=== PATIENT | female | born 1985 | race Caucasian/White ===

== ENCOUNTER 2017-02-07 12:11 | Inpatient (IN) | payer MEDICAID ==
[~2017-02-07] VITALS: Ht 167.6 cm; Wt 36.6 kg
[~2017-02-07 12:11] MED LIST: LORA1TAB PO; SUMA50TA4 PO
[2017-02-07 12:55] LABS: ASPARTATE AMINO TRANSFERASE 648 U/L (15-37); BLOOD UREA NITROGEN 4 mg/dL (7-18)
[2017-02-07] MEDS ORDERED: SODIUM CHLORIDE FLUSH 10ML SYR IVF ONE (13:00)
[2017-02-07] MEDS ORDERED: SODIUM CHLORIDE 0.9% 1,000ML IVBOLUS ONE (13:00)
[2017-02-07] MEDS ORDERED: NS + 40MEQ KCL 1,000 ML IV ONE (13:04)
[2017-02-07] MEDS ORDERED: POTASSIUM CHLORIDE 20 MEQ TAB.ER.PRT PO ONE (13:30)
[2017-02-07] MEDS ORDERED: LABETALOL 5MG/ML 40ML VIAL IVPush PRN (14:00)
[2017-02-07] MEDS ORDERED: SODIUM CHLORIDE FLUSH 10ML SYR IVF PRN (14:00)
[2017-02-07] MEDS ORDERED: POTASSIUM CHLORIDE 40 MEQ in SODIUM CHLORIDE 0.9% 500 ML IV ONE (14:30)
[2017-02-07] MEDS ORDERED: OMNIPAQUE 350 MG/ML, 100ML BOTTLE ONE (14:37)
[2017-02-07] MEDS ORDERED: MORPHINE SULFATE 4 MG/ML, 1ML ONE ×3 (15:28→20:00)
[2017-02-07] MEDS ORDERED: ONDANSETRON 2MG/ML, 2ML ONE (15:29)
[2017-02-07] MEDS: morphine SULFATE 10 MG/ML, 1ML IVPush PRN ×2 (15:42→20:03)
[2017-02-07] MEDS: ONDANSETRON 2MG/ML, 2ML IVPush PRN (16:44)
[2017-02-07] MEDS: POTASSIUM CHLORIDE 20 MEQ in LACTATED RINGERS 1,000 ML IV SCH ×3 (17:52→22:21)
[2017-02-07 20:00] VITALS: BP 131/88
[2017-02-07] MEDS: LORazepam 2 MG/ML, 1ML IVPush PRN (22:43)
[2017-02-08] MEDS: LORazepam 2 MG/ML, 1ML IVPush PRN ×6 (00:59→23:39)
[2017-02-08] MEDS: POTASSIUM CHLORIDE 20 MEQ in LACTATED RINGERS 1,000 ML IV SCH ×4 (01:58→23:36)
[2017-02-08 02:00] VITALS: BP 148/100
[2017-02-08] MEDS: POTASSIUM CHLORIDE 20 MEQ, MAGNESIUM SULFATE 1 GM, THIAMINE 100 MG, FOLIC ACID 1 MG, MV... IV SCH (02:51)
[2017-02-08 04:00] VITALS: BP 145/95
[2017-02-08 05:54] LABS: BLOOD UREA NITROGEN 4 mg/dL (7-18)
[2017-02-08 05:58] LABS: ASPARTATE AMINO TRANSFERASE 428 U/L (15-37)
[2017-02-08 07:51] VITALS: BP 132/89
[2017-02-08] MEDS: morphine SULFATE 10 MG/ML, 1ML IVPush PRN ×2 (08:17→20:31)
[2017-02-08] MEDS: ONDANSETRON 2MG/ML, 2ML IVPush PRN ×2 (09:31→20:44)
[2017-02-08 12:00] VITALS: BP 143/97
[2017-02-08 16:30] VITALS: BP 138/86
[2017-02-08 20:59] VITALS: BP 128/85
[2017-02-09 01:02] VITALS: BP 139/97
[2017-02-09] MEDS: LORazepam 2 MG/ML, 1ML IVPush PRN ×6 (01:39→22:20)
[2017-02-09] MEDS: morphine SULFATE 10 MG/ML, 1ML IVPush PRN ×4 (02:30→23:01)
[2017-02-09] MEDS: ONDANSETRON 2MG/ML, 2ML IVPush PRN ×2 (02:30→09:00)
[2017-02-09 04:07] VITALS: BP 135/95
[2017-02-09] MEDS: POTASSIUM CHLORIDE 20 MEQ, MAGNESIUM SULFATE 1 GM, THIAMINE 100 MG, FOLIC ACID 1 MG, MV... IV SCH (04:13)
[2017-02-09 06:11] LABS: ASPARTATE AMINO TRANSFERASE 648 U/L (15-37); BLOOD UREA NITROGEN 3 mg/dL (7-18)
[2017-02-09 07:41] VITALS: BP 129/96
[2017-02-09] MEDS ORDERED: POTASSIUM CHLORIDE 20 MEQ, MAGNESIUM SULFATE 1 GM, FOLIC ACID 1 MG, THIAMINE 100 MG, MV... IV SCH (09:30)
[2017-02-09] MEDS: D5%-0.45NACL+KCL 30MEQ 1,000 ML IV SCH ×2 (10:14→17:19)
[2017-02-09 12:02] VITALS: BP 141/102
[2017-02-09] MEDS ORDERED: CEFTRIAXONE PMX 1GM/50ML 50 ML IV SCH (14:00)
[2017-02-09] MEDS ORDERED: POTASSIUM PHOSPHATE 22 MEQ in SODIUM CHLORIDE 0.9% 500 ML IV ONE (14:00)
[2017-02-09] MEDS ORDERED: MAGNESIUM SULFATE PMX 4GM/100M 100 ML IV ONE (14:00)
[2017-02-09 19:39] VITALS: BP 126/86
[2017-02-09] MEDS: metroNIDAZOLE 500 MG TABLET PO SCH (20:00)
[2017-02-10 01:33] VITALS: BP 118/85
[2017-02-10] MEDS: LORazepam 2 MG/ML, 1ML IVPush PRN ×2 (01:55→05:01)
[2017-02-10 05:13] VITALS: BP 130/95
[2017-02-10] MEDS: ONDANSETRON 2MG/ML, 2ML IVPush PRN (05:51)
[2017-02-10 06:13] LABS: ASPARTATE AMINO TRANSFERASE 563 U/L (15-37); BLOOD UREA NITROGEN < 1 mg/dL (7-18)
[2017-02-10 07:54] VITALS: BP 123/85
[2017-02-10] MEDS: morphine SULFATE 10 MG/ML, 1ML IVPush PRN (08:36)
[2017-02-10] MEDS: metroNIDAZOLE 500 MG TABLET PO SCH (08:36)
[2017-02-10] MEDS: D5%-0.45NACL+KCL 30MEQ 1,000 ML IV SCH (08:37)
[2017-02-10] MEDS ORDERED: POTASSIUM CHLORIDE 20 MEQ TAB.ER.PRT PO ONE (09:00)
[2017-02-10] MEDS ORDERED: LORazepam 1MG TABLET PO PRN (09:30)
[2017-02-10] MEDS ORDERED: FOLIC ACID 1 MG TABLET PO SCH (09:30)
[2017-02-10] MEDS ORDERED: THIAMINE 100MG TABLET PO SCH (09:30)
[2017-02-10] MEDS ORDERED: MULTIVIT.W/IRON, MINERALS ORAL SOL PO SCH (09:30)
[2017-02-10 11:10] LABS: HEPATITIS C VIRUS ANTIBODY Nonreactive (Nonreactive)
== END 2017-02-10 13:16 | disposition left against medical advice (07) | DRG 439 ==
LOC: ED 13:38 → EDIP 13:39 → ED 13:55 → 4EST 15:50
PROVIDERS: ADMIT Internal Medicine; ATTEND Internal Medicine
DX: K85.20 Alcohol induced acute pancreatitis without necrosis or infection (principal); F10.239 Alcohol dependence with withdrawal, unspecified; N39.0 Urinary tract infection, site not specified; A09 Infectious gastroenteritis and colitis, unspecified; E87.6 Hypokalemia; D69.6 Thrombocytopenia, unspecified; R73.9 Hyperglycemia, unspecified; E86.0 Dehydration; Z53.21 Procedure and treatment not carried out due to patient leaving prior to being seen by health care provider; F10.220 Alcohol dependence with intoxication, uncomplicated; E16.2 Hypoglycemia, unspecified; D64.9 Anemia, unspecified; A59.9 Trichomoniasis, unspecified; Z79.899 Other long term (current) drug therapy; Z88.6 Allergy status to analgesic agent; Z87.891 Personal history of nicotine dependence
CPT/HCPCS: 36415; 74160; 80053; 80061; 80074; 81001; 83036; 83690; 83735; 84100; 84132; 84443; 85025; 87086; 96360; 96361; J0696; J2405; J3411; J3475; J3480; Q9967; J2060; J2270; J7030; J7040; J7120

== ENCOUNTER 2017-03-26 20:51 | Inpatient (IN) | payer MEDICAID ==
[~2017-03-26] VITALS: Ht 167.6 cm; Wt 50.2 kg
[2017-03-26] MEDS ORDERED: MORPHINE SULFATE 4 MG/ML, 1ML ONE ×2 (21:25→23:53)
[2017-03-26] MEDS ORDERED: ONDANSETRON 2MG/ML, 2ML ONE (21:25)
[2017-03-26] MEDS: MORPHINE SULFATE 4 MG/ML, 1ML IVPush PRN ×2 (21:30→23:56)
[2017-03-26] MEDS ORDERED: ONDANSETRON 2MG/ML, 2ML IVPush ONE (21:30)
[2017-03-26 21:53] LABS: HEMATOCRIT 31.2 % (34.6-47.8); HEMOGLOBIN 10.4 g/dL (11.7-16.4); WHITE BLOOD COUNT 6.4 x10^3/uL (3.4-10)
[2017-03-26 22:07] LABS: BLOOD UREA NITROGEN 4 mg/dL (7-18)
[2017-03-26 22:14] LABS: ASPARTATE AMINO TRANSFERASE 167 U/L (15-37)
[2017-03-26] MEDS ORDERED: POTASSIUM CHLORIDE 20 MEQ TAB.ER.PRT ONE (22:22)
[2017-03-26] MEDS ORDERED: POTASSIUM CHLORIDE 20 MEQ TAB.ER.PRT PO ONE (22:30)
[2017-03-27] MEDS ORDERED: FAMOTIDINE 20 MG/2 ML IVP ONE (01:00)
[2017-03-27] MEDS ORDERED: LORazepam 2 MG/ML, 1ML IVPush ONE (01:00)
[2017-03-27] MEDS ORDERED: SODIUM CHLORIDE 0.9% 1,000ML IVBOLUS ONE ×2 (01:00→08:00)
[2017-03-27] MEDS ORDERED: ONDANSETRON 2MG/ML, 2ML IVPush ONE (01:00)
[2017-03-27] MEDS ORDERED: ONDANSETRON 2MG/ML, 2ML ONE (01:02)
[2017-03-27] MEDS ORDERED: FAMOTIDINE 20 MG/2 ML ONE (01:03)
[2017-03-27] MEDS ORDERED: LORazepam 2 MG/ML, 1ML ONE (01:03)
[2017-03-27] MEDS ORDERED: SODIUM CHLORIDE 0.9% 1,000 ML IV ONE (01:12)
[2017-03-27] MEDS ORDERED: PIPERACILLIN/TAZO/PMX 3.375GM 50 ML ONE (01:16)
[2017-03-27] MEDS ORDERED: MORPHINE SULFATE 4 MG/ML, 1ML IVPush PRN ×2 (01:30→03:00)
[2017-03-27] MEDS ORDERED: ONDANSETRON 2MG/ML, 2ML IVPush PRN (01:30)
[2017-03-27] MEDS ORDERED: PIPERACILLIN/TAZO/PMX 3.375GM 50 ML IVPB ONE (01:30)
[2017-03-27] MEDS ORDERED: GUAIFENESIN/DM 200-20MG, 10ML UDC PO PRN (02:00)
[2017-03-27] MEDS ORDERED: POTASSIUM CHLORIDE 20 MEQ TAB.ER.PRT PO ONE (02:00)
[2017-03-27] MEDS ORDERED: POLYETHYLENE GLYCOL 17 GM PACKET PO PRN (02:00)
[2017-03-27] MEDS ORDERED: LABETALOL 5MG/ML, 20ML IVPush PRN (02:00)
[2017-03-27] MEDS ORDERED: LORazepam 2 MG/ML, 1ML IV PRN ×3 (02:00)
[2017-03-27] MEDS ORDERED: LORazepam 1MG TABLET PO PRN ×3 (02:00)
[2017-03-27 02:31] LABS: HEMATOCRIT 30.6 % (34.6-47.8); HEMOGLOBIN 10.1 g/dL (11.7-16.4); WHITE BLOOD COUNT 5.9 x10^3/uL (3.4-10)
[2017-03-27 02:43] LABS: BLOOD UREA NITROGEN 4 mg/dL (7-18)
[2017-03-27 02:48] VITALS: BP 104/78
[2017-03-27] MEDS: POTASSIUM CHLORIDE 20 MEQ, MAGNESIUM SULFATE 2 GM, THIAMINE 100 MG, MVI ADULT 10 ML, FO... IV SCH (04:09)
[2017-03-27] MEDS: LORazepam 2 MG/ML, 1ML IV PRN (04:27)
[2017-03-27] MEDS ORDERED: MAGNESIUM SULFATE PMX 4GM/100M 100 ML IV ONE (05:30)
[2017-03-27 06:42] LABS: DAU SCREEN DISCLAIMER
[2017-03-27 07:57] VITALS: BP 110/77
[2017-03-27] MEDS: SENNA/DOCUSATE TABLET PO SCH (07:57)
[2017-03-27] MEDS: PANTOPRAZOLE 40 MG IV IVPush SCH (08:42)
[2017-03-27] MEDS: LORazepam 1MG TABLET PO PRN ×2 (08:43→12:44)
[2017-03-27] MEDS: NICOTINE 21 MG/24 HR PATCH.TD24 TD SCH (08:43)
[2017-03-27] MEDS: POTASSIUM CHLORIDE 20 MEQ TAB.ER.PRT PO SCH ×2 (08:43→16:47)
[2017-03-27] MEDS ORDERED: ERGOCALCIFEROL 50,000 UNIT CAPSULE PO SCH (10:00)
[2017-03-27 10:55] LABS: BLOOD UREA NITROGEN 5 mg/dL (7-18)
[2017-03-27] MEDS: MORPHINE SULFATE 4 MG/ML, 1ML IVPush PRN ×2 (11:19→19:36)
[2017-03-27] MEDS: ONDANSETRON 2MG/ML, 2ML IVPush PRN (11:20)
[2017-03-27 12:30] VITALS: BP 108/76
[2017-03-27] MEDS: OXYcodone IR 5MG TABLET PO PRN ×2 (14:19→23:04)
[2017-03-27] MEDS: LORazepam 0.5MG TABLET PO PRN (16:47)
[2017-03-27 18:46] VITALS: BP 118/84
[2017-03-27] MEDS: ONDANSETRON ODT 4 MG PO PRN (19:36)
[2017-03-27] MEDS: SODIUM CHLORIDE 0.9% 1,000 ML IV SCH (19:37)
[2017-03-28] MEDS: SODIUM CHLORIDE 0.9% 1,000 ML IV SCH ×2 (00:40→14:19)
[2017-03-28 00:55] VITALS: BP 134/97
[2017-03-28] MEDS: POTASSIUM CHLORIDE 20 MEQ, MAGNESIUM SULFATE 2 GM, THIAMINE 100 MG, MVI ADULT 10 ML, FO... IV SCH (03:19)
[2017-03-28] MEDS: MORPHINE SULFATE 4 MG/ML, 1ML IVPush PRN ×3 (03:37→22:29)
[2017-03-28] MEDS: ONDANSETRON ODT 4 MG PO PRN (03:37)
[2017-03-28] MEDS: OXYcodone IR 5MG TABLET PO PRN (06:12)
[2017-03-28 06:36] VITALS: BP 115/84
[2017-03-28] MEDS: POTASSIUM CHLORIDE 20 MEQ TAB.ER.PRT PO SCH ×2 (08:00→17:00)
[2017-03-28] MEDS: SENNA/DOCUSATE TABLET PO SCH (09:00)
[2017-03-28] MEDS: NICOTINE 21 MG/24 HR PATCH.TD24 TD SCH (10:14)
[2017-03-28] MEDS: PANTOPRAZOLE 40 MG IV IVPush SCH (10:21)
[2017-03-28 10:28] LABS: BLOOD UREA NITROGEN 3 mg/dL (7-18)
[2017-03-28 10:31] LABS: ASPARTATE AMINO TRANSFERASE 160 U/L (15-37); FERRITIN 1122.3 ng/mL (8-252); TOTAL IRON BINDING CAPACITY 117 mcg/dL (250-450)
[2017-03-28 10:37] LABS: HEMOGLOBIN 8.8 g/dL (11.7-16.4); WHITE BLOOD COUNT 4.8 x10^3/uL (3.4-10)
[2017-03-28 10:52] LABS: ANISOCYTOSIS 1+
[2017-03-28 10:54] LABS: STOMATOCYTES 1+
[2017-03-28 10:56] LABS: LARGE PLATELETS 1+
[2017-03-28 14:10] VITALS: BP 128/89
[2017-03-28] MEDS ORDERED: MORPHINE SULFATE 4 MG/ML, 1ML ONE (14:14)
[2017-03-28] MEDS: ONDANSETRON 2MG/ML, 2ML IVPush PRN (16:57)
[2017-03-28] MEDS: CEFTRIAXONE PMX 1GM/50ML 50 ML IV SCH (19:33)
[2017-03-28] MEDS: METRONIDAZOLE PMX 500MG/100ML 100 ML IV SCH (20:31)
[2017-03-28 20:46] VITALS: BP 119/77
[2017-03-28] MEDS: LORazepam 2 MG/ML, 1ML IV PRN (22:30)
[2017-03-29 00:56] VITALS: BP 114/79
[2017-03-29] MEDS: POTASSIUM CHLORIDE 20 MEQ, MAGNESIUM SULFATE 2 GM, THIAMINE 100 MG, MVI ADULT 10 ML, FO... IV SCH (02:19)
[2017-03-29] MEDS: SODIUM CHLORIDE 0.9% 1,000 ML IV SCH ×2 (04:20→21:00)
[2017-03-29] MEDS: METRONIDAZOLE PMX 500MG/100ML 100 ML IV SCH ×3 (04:41→20:05)
[2017-03-29 05:19] LABS: HEMATOCRIT 29.1 % (34.6-47.8); HEMOGLOBIN 9.6 g/dL (11.7-16.4); WHITE BLOOD COUNT 5.7 x10^3/uL (3.4-10)
[2017-03-29 05:42] LABS: ASPARTATE AMINO TRANSFERASE 188 U/L (15-37); BLOOD UREA NITROGEN 2 mg/dL (7-18)
[2017-03-29 07:00] VITALS: BP 106/73
[2017-03-29] MEDS: POTASSIUM CHLORIDE 20 MEQ TAB.ER.PRT PO SCH ×2 (08:00→18:08)
[2017-03-29] MEDS: NICOTINE 21 MG/24 HR PATCH.TD24 TD SCH (08:12)
[2017-03-29] MEDS: PANTOPRAZOLE 40 MG IV IVPush SCH (08:12)
[2017-03-29] MEDS: SENNA/DOCUSATE TABLET PO SCH (08:13)
[2017-03-29] MEDS: OMEPRAZOLE 20 MG CAPSULE.DR PO SCH (09:00)
[2017-03-29] MEDS: LORazepam 2 MG/ML, 1ML IV PRN ×2 (10:33→15:02)
[2017-03-29] MEDS: OXYcodone IR 5MG TABLET PO PRN ×3 (12:32→22:02)
[2017-03-29] MEDS: ONDANSETRON 2MG/ML, 2ML IVPush PRN ×2 (13:14→19:29)
[2017-03-29 13:30] VITALS: BP 115/88
[2017-03-29] MEDS: CEFTRIAXONE PMX 1GM/50ML 50 ML IV SCH (19:29)
[2017-03-29 21:05] VITALS: BP 106/78
[2017-03-29] MEDS: LORazepam 1MG TABLET PO PRN (21:33)
[2017-03-30] MEDS: ONDANSETRON ODT 4 MG PO PRN ×3 (01:20→21:02)
[2017-03-30] MEDS: LORazepam 1MG TABLET PO PRN ×2 (01:20→05:20)
[2017-03-30] MEDS: OXYcodone IR 5MG TABLET PO PRN ×4 (02:30→21:02)
[2017-03-30] MEDS: METRONIDAZOLE PMX 500MG/100ML 100 ML IV SCH ×3 (04:15→20:58)
[2017-03-30 08:00] VITALS: BP 124/95
[2017-03-30 08:20] LABS: HEMATOCRIT 26.9 % (34.6-47.8); HEMOGLOBIN 8.9 g/dL (11.7-16.4)
[2017-03-30] MEDS: NICOTINE 21 MG/24 HR PATCH.TD24 TD SCH (09:00)
[2017-03-30] MEDS: OMEPRAZOLE 20 MG CAPSULE.DR PO SCH (09:00)
[2017-03-30] MEDS: PANTOPRAZOLE 40 MG IV IVPush SCH (09:00)
[2017-03-30] MEDS: SENNA/DOCUSATE TABLET PO SCH (09:00)
[2017-03-30 09:46] LABS: ASPARTATE AMINO TRANSFERASE 160 U/L (15-37); BLOOD UREA NITROGEN < 1 mg/dL (7-18)
[2017-03-30] MEDS: LORazepam 0.5MG TABLET PO PRN ×2 (10:43→15:55)
[2017-03-30 11:30] LABS: ANISOCYTOSIS 1+; POLYCHROMASIA 1+
[2017-03-30] MEDS: SODIUM CHLORIDE 0.9% 1,000 ML IV SCH (12:02)
[2017-03-30 12:29] LABS: BLOOD UREA NITROGEN < 1 mg/dL (7-18)
[2017-03-30 14:49] VITALS: BP 113/76
[2017-03-30 18:36] VITALS: BP 115/72
[2017-03-30] MEDS: CEFTRIAXONE PMX 1GM/50ML 50 ML IV SCH (20:05)
[2017-03-30] MEDS: LORazepam 2 MG/ML, 1ML IV PRN (22:51)
[2017-03-31 01:00] VITALS: BP 121/78
[2017-03-31] MEDS: OXYcodone IR 5MG TABLET PO PRN ×5 (03:02→20:29)
[2017-03-31] MEDS: LORazepam 2 MG/ML, 1ML IV PRN (03:02)
[2017-03-31] MEDS: SODIUM CHLORIDE 0.9% 1,000 ML IV SCH ×2 (04:09→19:14)
[2017-03-31] MEDS: METRONIDAZOLE PMX 500MG/100ML 100 ML IV SCH ×3 (04:09→23:19)
[2017-03-31 05:41] LABS: HEMATOCRIT 30.6 % (34.6-47.8); HEMOGLOBIN 10.1 g/dL (11.7-16.4); WHITE BLOOD COUNT 6.2 x10^3/uL (3.4-10)
[2017-03-31 05:46] LABS: BLOOD UREA NITROGEN 1 mg/dL (7-18)
[2017-03-31 07:13] VITALS: BP 123/87
[2017-03-31] MEDS: PANTOPRAZOLE 40 MG IV IVPush SCH (07:52)
[2017-03-31] MEDS: SENNA/DOCUSATE TABLET PO SCH (07:52)
[2017-03-31] MEDS: OMEPRAZOLE 20 MG CAPSULE.DR PO SCH (07:52)
[2017-03-31] MEDS: NICOTINE 21 MG/24 HR PATCH.TD24 TD SCH (07:52)
[2017-03-31] MEDS: ONDANSETRON 2MG/ML, 2ML IVPush PRN ×2 (08:46→16:17)
[2017-03-31] MEDS ORDERED: OMNIPAQUE 350 MG/ML, 100ML BOTTLE ONE (13:12)
[2017-03-31 14:14] VITALS: BP 120/88
[2017-03-31] MEDS ORDERED: LORazepam 0.5MG TABLET PO PRN (16:30)
[2017-03-31 19:16] VITALS: BP 108/82
[2017-03-31] MEDS: CEFTRIAXONE PMX 1GM/50ML 50 ML IV SCH (20:29)
[2017-03-31] MEDS: ONDANSETRON ODT 4 MG PO PRN (23:20)
[2017-04-01] MEDS: OXYcodone IR 5MG TABLET PO PRN ×3 (01:08→09:27)
[2017-04-01 01:10] VITALS: BP 124/96
[2017-04-01] MEDS: METRONIDAZOLE PMX 500MG/100ML 100 ML IV SCH ×2 (05:05→11:03)
[2017-04-01 07:59] VITALS: BP 110/74
[2017-04-01] MEDS: NICOTINE 21 MG/24 HR PATCH.TD24 TD SCH (08:14)
[2017-04-01] MEDS: SODIUM CHLORIDE 0.9% 1,000 ML IV SCH (08:14)
[2017-04-01] MEDS: OMEPRAZOLE 20 MG CAPSULE.DR PO SCH (08:14)
[2017-04-01] MEDS: SENNA/DOCUSATE TABLET PO SCH (08:15)
[2017-04-01] MEDS: ONDANSETRON 2MG/ML, 2ML IVPush PRN (08:20)
[2017-04-01] MEDS ORDERED: MAGNESIUM SULFATE PMX 2GM/50ML 50 ML IV ONE (11:00)
[2017-04-01] MEDS ORDERED: CIPR500T87 PO (11:33)
[2017-04-01] MEDS ORDERED: THIA100T10 PO (11:34)
[2017-04-01] MEDS ORDERED: METR500T PO (11:34)
[2017-04-01] MEDS ORDERED: FOLI-17 PO (11:35)
== END 2017-04-01 14:12 | disposition home or self-care (01) | DRG 444 ==
LOC: ED 21:07 → EDIP 03-27 01:12 → 4WST 03-27 02:14
PROVIDERS: ADMIT Hospitalist; ATTEND Hospitalist
DX: K81.9 Cholecystitis, unspecified (principal); E43 Unspecified severe protein-calorie malnutrition; N30.00 Acute cystitis without hematuria; E87.1 Hypo-osmolality and hyponatremia; K70.0 Alcoholic fatty liver; F10.239 Alcohol dependence with withdrawal, unspecified; D53.9 Nutritional anemia, unspecified; E55.9 Vitamin D deficiency, unspecified; E87.6 Hypokalemia; F17.210 Nicotine dependence, cigarettes, uncomplicated; R74.0 Nonspecific elevation of levels of transaminase and lactic acid dehydrogenase [LDH]; R74.8 Abnormal levels of other serum enzymes; Z83.3 Family history of diabetes mellitus; Z88.6 Allergy status to analgesic agent
CPT/HCPCS: 36415; 71275; 76700; 78226; 78227; 80048; 80053; 80307; 81001; 82040; 82306; 82607; 82728; 82746; 83540; 83550; 83605; 83690; 83735; 84100; 84145; 84439; 84443; 84702; 84703; 85025; 85379; 85610; 87086; 87324; 96365; 96375; 96376; J0696; J2405; J2543; J3411; J3475; J3480; J7042; Q0162; Q9967; A9537; C9113; C9898; J2060; J7030; S0028

== ENCOUNTER 2017-04-04 16:42 | Emergency (ER) | payer MEDICAID ==
[~2017-04-04] VITALS: Ht 160 cm; Wt 47.0 kg
[~2017-04-04 16:42] MED LIST changes: +CIPR500T87 PO; +FOLI-17 PO; +METR500T PO; +THIA100T10 PO
[2017-04-04] MEDS ORDERED: SODIUM CHLORIDE 0.9% 1,000 ML IV ONE (16:53)
[2017-04-04] MEDS ORDERED: SODIUM CHLORIDE FLUSH 10ML SYR IVF ONE (17:00)
[2017-04-04] MEDS ORDERED: ONDANSETRON 2MG/ML, 2ML IVPush ONE ×2 (17:00→20:00)
[2017-04-04 17:23] LABS: HEMATOCRIT 28.7 % (34.6-47.8); HEMOGLOBIN 9.3 g/dL (11.7-16.4); WHITE BLOOD COUNT 9.8 x10^3/uL (3.4-10)
[2017-04-04] MEDS ORDERED: HYDROmorphone 1 MG/ML, 1ML ONE ×3 (17:23→20:05)
[2017-04-04] MEDS ORDERED: ONDANSETRON 2MG/ML, 2ML ONE ×2 (17:24→19:33)
[2017-04-04] MEDS: HYDROmorphone 1 MG/ML, 1ML IVPush PRN ×2 (17:27→18:45)
[2017-04-04 17:33] LABS: ASPARTATE AMINO TRANSFERASE 101 U/L (15-37); BLOOD UREA NITROGEN 2 mg/dL (7-18)
[2017-04-04] MEDS ORDERED: LORazepam 2 MG/ML, 1ML ONE (20:10)
[2017-04-04] MEDS ORDERED: SODIUM CHLORIDE 0.9% 1,000ML IVBOLUS ONE (20:30)
[2017-04-04] MEDS ORDERED: LORazepam 2 MG/ML, 1ML IVPush ONE (20:30)
[2017-04-04] MEDS ORDERED: OMNIPAQUE 350 MG/ML, 100ML BOTTLE ONE (20:42)
[2017-04-04] MEDS ORDERED: POTASSIUM CHLORIDE 20 MEQ TAB.ER.PRT ONE (21:27)
[2017-04-04] MEDS ORDERED: POTASSIUM CHLORIDE 20 MEQ TAB.ER.PRT PO ONE (21:30)
[2017-04-04 22:17] VITALS: BP 118/83
== END 2017-04-04 22:26 | disposition home or self-care (01) ==
LOC: ED 17:15
DX: G89.29 Other chronic pain (principal); R10.84 Generalized abdominal pain; F10.20 Alcohol dependence, uncomplicated; E87.6 Hypokalemia; F17.210 Nicotine dependence, cigarettes, uncomplicated
CPT/HCPCS: 36415; 74022; 74177; 76700; 80053; 81003; 83605; 83690; 85025; 96361; 96374; 96375; 96376; 99285; J1170; J2060; J2405; J7030; Q9967

== ENCOUNTER 2017-04-13 16:47 | Inpatient (IN) | payer MEDICAID ==
[~2017-04-13] VITALS: Ht 167.6 cm; Wt 55.3 kg
[~2017-04-13 16:47] MED LIST changes: +IBUP-1223 PO; +OXYC-306 PO
[2017-04-13] MEDS ORDERED: ONDA4TAB10 PO (16:59)
[2017-04-13] MEDS ORDERED: SODIUM CHLORIDE 0.9% 1,000ML IVBOLUS ONE (17:30)
[2017-04-13] MEDS ORDERED: ONDANSETRON 2MG/ML, 2ML IVPush ONE ×2 (17:30→21:00)
[2017-04-13] MEDS ORDERED: SODIUM CHLORIDE FLUSH 10ML SYR IVF ONE (17:30)
[2017-04-13 17:55] LABS: ASPARTATE AMINO TRANSFERASE 186 U/L (15-37); BLOOD UREA NITROGEN 2 mg/dL (7-18)
[2017-04-13 17:59] LABS: HEMATOCRIT 28.5 % (34.6-47.8); HEMOGLOBIN 9.3 g/dL (11.7-16.4); WHITE BLOOD COUNT 10.2 x10^3/uL (3.4-10)
[2017-04-13] MEDS ORDERED: ONDANSETRON 2MG/ML, 2ML ONE ×2 (18:06→20:48)
[2017-04-13] MEDS ORDERED: HYDROmorphone 1 MG/ML, 1ML ONE ×2 (18:06→20:47)
[2017-04-13] MEDS: HYDROmorphone 1 MG/ML, 1ML IVPush PRN ×2 (18:11→21:01)
[2017-04-13 18:14] LABS: DIFF TOTAL CELLS COUNTED 100 CELL DIFF
[2017-04-13 18:16] LABS: ANISOCYTOSIS 1+; HYPOCHROMIA 1+; TARGET CELLS 1+; VERIFY COUNTS? YES
[2017-04-13] MEDS ORDERED: METRONIDAZOLE PMX 500MG/100ML 100 ML IV ONE (20:30)
[2017-04-13] MEDS ORDERED: CEFOTETAN PMX 1GM/50ML 50 ML IV ONE (20:30)
[2017-04-13] MEDS ORDERED: OMNIPAQUE 350 MG/ML, 100ML BOTTLE ONE (20:37)
[2017-04-13] MEDS ORDERED: LORazepam 2 MG/ML, 1ML ONE (20:48)
[2017-04-13] MEDS ORDERED: CEFOTETAN PMX 1GM/50ML 50 ML ONE (20:48)
[2017-04-13] MEDS ORDERED: HYDROmorphone 1 MG/ML, 1ML IV ONE (21:00)
[2017-04-13] MEDS ORDERED: LORazepam 2 MG/ML, 1ML IVPush ONE (21:00)
[2017-04-13 21:40] VITALS: BP 112/75
[2017-04-13] MEDS ORDERED: ONDANSETRON 2MG/ML, 2ML IVPush PRN (23:30)
[2017-04-13] MEDS ORDERED: ONDANSETRON ODT 4 MG PO PRN (23:30)
[2017-04-13] MEDS ORDERED: TEMAZEPAM 15 MG CAPSULE PO PRN (23:30)
[2017-04-13] MEDS ORDERED: LORazepam 1MG TABLET PO PRN (23:30)
[2017-04-13] MEDS ORDERED: FAMOTIDINE 20 MG/2 ML IVPush SCH (23:30)
[2017-04-13] MEDS ORDERED: ACETAMINOPHEN 325 MG TABLET PO PRN (23:30)
[2017-04-13] MEDS ORDERED: LABETALOL 5MG/ML, 20ML IVPush PRN (23:30)
[2017-04-14] MEDS: D5%-0.45NACL+KCL 20MEQ 1,000 ML IV SCH ×2 (00:07→14:34)
[2017-04-14] MEDS: METRONIDAZOLE PMX 500MG/100ML 100 ML IV SCH ×4 (00:07→23:59)
[2017-04-14] MEDS: OXYcodone/APAP 5/325MG TABLET PO PRN ×2 (00:08→10:35)
[2017-04-14] MEDS: NICOTINE 14MG/24 HR PATCH.TD24 TD SCH ×2 (00:08→23:59)
[2017-04-14] MEDS: HYDROmorphone 2 MG/ML, 1ML IVPush PRN ×2 (01:25→05:05)
[2017-04-14 02:05] VITALS: BP 94/67
[2017-04-14 05:08] LABS: HEMATOCRIT 24.7 % (34.6-47.8); HEMOGLOBIN 8.1 g/dL (11.7-16.4); WHITE BLOOD COUNT 8.2 x10^3/uL (3.4-10)
[2017-04-14 05:20] LABS: BLOOD UREA NITROGEN 1 mg/dL (7-18)
[2017-04-14 05:21] LABS: ASPARTATE AMINO TRANSFERASE 156 U/L (15-37)
[2017-04-14 05:29] LABS: DIFF TOTAL CELLS COUNTED 100 CELL DIFF
[2017-04-14 05:33] LABS: ANISOCYTOSIS 1+; HYPOCHROMIA 1+; TARGET CELLS 1+; VERIFY COUNTS? YES
[2017-04-14] MEDS: morphine SULFATE 10 MG/ML, 1ML IVPush PRN ×6 (08:08→21:53)
[2017-04-14] MEDS: CEFOTETAN PMX 1GM/50ML 50 ML IV SCH ×2 (10:36→21:53)
[2017-04-14] MEDS ORDERED: LORazepam 1MG TABLET PO PRN (11:30)
[2017-04-14 11:42] LABS: OCCBLD OBC PASS
[2017-04-14 11:58] VITALS: BP 99/67
[2017-04-14] MEDS: LORazepam 1MG TABLET PO PRN ×3 (13:06→21:25)
[2017-04-14 15:21] VITALS: BP 115/82
[2017-04-14] MEDS: PANTOPRAZOLE 40 MG IV IVPush SCH (18:42)
[2017-04-14 18:57] LABS: HEMATOCRIT 26.5 % (34.6-47.8); HEMOGLOBIN 8.6 g/dL (11.7-16.4)
[2017-04-14 20:46] VITALS: BP 118/84
[2017-04-15] MEDS: morphine SULFATE 10 MG/ML, 1ML IVPush PRN ×7 (01:30→23:23)
[2017-04-15] MEDS: D5%-0.45NACL+KCL 20MEQ 1,000 ML IV SCH ×2 (02:13→15:48)
[2017-04-15 03:14] VITALS: BP 118/83
[2017-04-15] MEDS: PANTOPRAZOLE 40 MG IV IVPush SCH ×2 (05:38→17:35)
[2017-04-15 06:03] LABS: HEMATOCRIT 25.4 % (34.6-47.8); HEMOGLOBIN 8.3 g/dL (11.7-16.4); WHITE BLOOD COUNT 7.9 x10^3/uL (3.4-10)
[2017-04-15 06:04] LABS: DIFF TOTAL CELLS COUNTED 100 CELL DIFF
[2017-04-15 06:10] LABS: ASPARTATE AMINO TRANSFERASE 148 U/L (15-37)
[2017-04-15 06:12] LABS: BLOOD UREA NITROGEN < 1 mg/dL (7-18)
[2017-04-15] MEDS: LORazepam 1MG TABLET PO PRN (06:43)
[2017-04-15 06:52] LABS: ANISOCYTOSIS 1+; HYPOCHROMIA 1+; TARGET CELLS 1+; VERIFY COUNTS? YES
[2017-04-15 06:58] VITALS: BP 116/83
[2017-04-15] MEDS: METRONIDAZOLE PMX 500MG/100ML 100 ML IV SCH ×3 (08:49→23:23)
[2017-04-15] MEDS: CEFOTETAN PMX 1GM/50ML 50 ML IV SCH ×2 (11:35→20:58)
[2017-04-15] MEDS ORDERED: OMNIPAQUE 350 MG/ML, 100ML BOTTLE ONE (13:14)
[2017-04-15 13:20] VITALS: BP 114/67
[2017-04-15] MEDS: LORazepam 2 MG/ML, 1ML IV PRN ×2 (13:35→17:36)
[2017-04-15 18:47] VITALS: BP 121/85
[2017-04-15] MEDS: NICOTINE 14MG/24 HR PATCH.TD24 TD SCH (23:23)
[2017-04-16] MEDS: LORazepam 2 MG/ML, 1ML IV PRN ×4 (01:41→22:05)
[2017-04-16 02:10] VITALS: BP 102/70
[2017-04-16] MEDS: D5%-0.45NACL+KCL 20MEQ 1,000 ML IV SCH ×2 (03:05→19:55)
[2017-04-16] MEDS: morphine SULFATE 10 MG/ML, 1ML IVPush PRN ×6 (03:05→23:35)
[2017-04-16 05:27] LABS: HEMATOCRIT 25.6 % (34.6-47.8); HEMOGLOBIN 8.3 g/dL (11.7-16.4); WHITE BLOOD COUNT 6.4 x10^3/uL (3.4-10)
[2017-04-16] MEDS: PANTOPRAZOLE 40 MG IV IVPush SCH ×2 (06:04→17:32)
[2017-04-16 06:10] LABS: ASPARTATE AMINO TRANSFERASE 138 U/L (15-37)
[2017-04-16 06:12] LABS: BLOOD UREA NITROGEN < 1 mg/dL (7-18)
[2017-04-16 06:53] LABS: DIFF TOTAL CELLS COUNTED 100 CELL DIFF
[2017-04-16 06:55] VITALS: BP 105/74
[2017-04-16 06:57] LABS: ANISOCYTOSIS 1+; HYPOCHROMIA 1+; TARGET CELLS 1+; VERIFY COUNTS? YES
[2017-04-16] MEDS: METRONIDAZOLE PMX 500MG/100ML 100 ML IV SCH ×3 (08:16→23:34)
[2017-04-16] MEDS: CEFOTETAN PMX 1GM/50ML 50 ML IV SCH ×2 (11:06→19:55)
[2017-04-16 13:39] VITALS: BP 114/81
[2017-04-16 19:59] VITALS: BP 110/72
[2017-04-16] MEDS ORDERED: ONDANSETRON ODT 4 MG PO PRN (20:00)
[2017-04-16] MEDS ORDERED: ACETAMINOPHEN 325 MG TABLET PO PRN (20:00)
[2017-04-16] MEDS ORDERED: LABETALOL 5MG/ML, 20ML IVPush PRN (20:00)
[2017-04-16] MEDS: NICOTINE 14MG/24 HR PATCH.TD24 TD SCH (23:34)
[2017-04-17 01:25] VITALS: BP 117/78
[2017-04-17] MEDS: morphine SULFATE 10 MG/ML, 1ML IVPush PRN (05:56)
[2017-04-17] MEDS: PANTOPRAZOLE 40 MG IV IVPush SCH (05:56)
[2017-04-17 07:10] VITALS: BP 103/73
[2017-04-17] MEDS: D5%-0.45NACL+KCL 20MEQ 1,000 ML IV SCH ×2 (07:55→23:18)
[2017-04-17] MEDS: METRONIDAZOLE PMX 500MG/100ML 100 ML IV SCH ×2 (07:55→15:59)
[2017-04-17] MEDS: OXYcodone/APAP 5/325MG TABLET PO PRN ×4 (08:15→21:32)
[2017-04-17] MEDS: ONDANSETRON 2MG/ML, 2ML IVPush PRN (08:15)
[2017-04-17 08:37] LABS: HEMATOCRIT 30.2 % (34.6-47.8); HEMOGLOBIN 9.8 g/dL (11.7-16.4)
[2017-04-17 08:43] LABS: ASPARTATE AMINO TRANSFERASE 130 U/L (15-37)
[2017-04-17 08:49] LABS: BLOOD UREA NITROGEN < 1 mg/dL (7-18)
[2017-04-17 08:53] LABS: DIFF TOTAL CELLS COUNTED 100 CELL DIFF
[2017-04-17 08:57] LABS: ANISOCYTOSIS 1+; VERIFY COUNTS? YES
[2017-04-17 08:58] LABS: TARGET CELLS 1+
[2017-04-17] MEDS: CEFOTETAN PMX 1GM/50ML 50 ML IV SCH ×2 (11:00→21:32)
[2017-04-17 13:45] VITALS: BP 104/70
[2017-04-17] MEDS: LORazepam 1MG TABLET PO PRN ×2 (13:55→19:15)
[2017-04-17] MEDS: PANTOPROZOLE 40MG TABLET PO SCH (17:21)
[2017-04-17 20:04] VITALS: BP 98/68
[2017-04-17] MEDS: metroNIDAZOLE 500 MG TABLET PO SCH (21:32)
[2017-04-17] MEDS: NICOTINE 14MG/24 HR PATCH.TD24 TD SCH (23:19)
[2017-04-18 01:36] VITALS: BP 106/72
[2017-04-18] MEDS: OXYcodone/APAP 5/325MG TABLET PO PRN ×2 (04:12→08:38)
[2017-04-18] MEDS: LORazepam 1MG TABLET PO PRN (06:44)
[2017-04-18 07:11] LABS: ASPARTATE AMINO TRANSFERASE 123 U/L (15-37); BLOOD UREA NITROGEN 1 mg/dL (7-18)
[2017-04-18 07:12] LABS: HEMATOCRIT 30.9 % (34.6-47.8); HEMOGLOBIN 9.9 g/dL (11.7-16.4); WHITE BLOOD COUNT 7.6 x10^3/uL (3.4-10)
[2017-04-18 07:31] LABS: DIFF TOTAL CELLS COUNTED 100 CELL DIFF
[2017-04-18 07:33] LABS: ANISOCYTOSIS 1+; HYPOCHROMIA 1+; VERIFY COUNTS? YES
[2017-04-18 07:34] LABS: TARGET CELLS 1+
[2017-04-18 08:00] VITALS: BP 100/68
[2017-04-18] MEDS ORDERED: OXYC1TAB7 PO (08:11)
[2017-04-18] MEDS: PANTOPROZOLE 40MG TABLET PO SCH (08:38)
[2017-04-18] MEDS: ONDANSETRON 2MG/ML, 2ML IVPush PRN (08:38)
[2017-04-18] MEDS: CEFOTETAN PMX 1GM/50ML 50 ML IV SCH (09:45)
[2017-04-18] MEDS: metroNIDAZOLE 500 MG TABLET PO SCH (09:45)
[2017-04-18] MEDS: D5%-0.45NACL+KCL 20MEQ 1,000 ML IV SCH (12:00)
[2017-04-18] MEDS ORDERED: OXYC-302 PO (12:36)
[2017-04-18] MEDS ORDERED: CEFD300C37 PO (12:48)
[2017-04-18] MEDS ORDERED: METR500T8 PO (12:49)
[2017-04-19] MEDS ORDERED: PREN1COM3 PO (01:22)
== END 2017-04-18 13:30 | disposition home or self-care (01) | DRG 391 ==
LOC: ED 17:32 → EDIP 20:28 → INTOOBSV 20:28 → OBSVTOIN 20:28 → 3NE 21:48 → DCLOUNGE 04-18 12:15
PROVIDERS: ADMIT Internal Medicine; ATTEND Internal Medicine
DX: K52.9 Noninfective gastroenteritis and colitis, unspecified (principal); E43 Unspecified severe protein-calorie malnutrition; K76.0 Fatty (change of) liver, not elsewhere classified; K70.9 Alcoholic liver disease, unspecified; K75.9 Inflammatory liver disease, unspecified; Z68.1 Body mass index [BMI] 19.9 or less, adult; Z88.8 Allergy status to other drugs, medicaments and biological substances; D64.9 Anemia, unspecified; D75.89 Other specified diseases of blood and blood-forming organs; F10.10 Alcohol abuse, uncomplicated; F12.90 Cannabis use, unspecified, uncomplicated; F17.200 Nicotine dependence, unspecified, uncomplicated; Z90.49 Acquired absence of other specified parts of digestive tract
CPT/HCPCS: 36415; 74177; 76700; 78226; 80053; 81003; 82272; 83690; 83735; 84100; 84703; 85014; 85018; 85025; 87040; 87324; 96361; 96374; 96375; 96376; J1170; J2405; Q9967; A9537; C9113; C9898; J2060; J2270; J3480; J7030; S0028; S0074

== ENCOUNTER 2017-04-18 19:36 | Inpatient (IN) | payer MEDICAID ==
[~2017-04-18] VITALS: Ht 157.5 cm; Wt 66.8 kg
[~2017-04-18 19:36] MED LIST changes: +CEFD300C37 PO; +METR500T8 PO; +ONDA4TAB10 PO; +OXYC-302 PO; +OXYC1TAB7 PO
[2017-04-18] MEDS ORDERED: SODIUM CHLORIDE 0.9% 1,000 ML IV ONE (19:51)
[2017-04-18] MEDS ORDERED: SODIUM CHLORIDE FLUSH 10ML SYR IVF ONE (20:00)
[2017-04-18] MEDS ORDERED: SODIUM CHLORIDE 0.9% 1,000ML IVBOLUS ONE (20:00)
[2017-04-18] MEDS ORDERED: ONDANSETRON 2MG/ML, 2ML IVPush ONE (20:00)
[2017-04-18] MEDS ORDERED: HYDROmorphone 1 MG/ML, 1ML ONE ×2 (20:08→21:01)
[2017-04-18] MEDS ORDERED: ONDANSETRON 2MG/ML, 2ML ONE (20:08)
[2017-04-18] MEDS: HYDROmorphone 1 MG/ML, 1ML IVPush PRN ×2 (20:11→21:05)
[2017-04-18 20:48] LABS: HEMATOCRIT 34.2 % (34.6-47.8); HEMOGLOBIN 10.7 g/dL (11.7-16.4); WHITE BLOOD COUNT 13.4 x10^3/uL (3.4-10)
[2017-04-18 20:49] LABS: DIFF TOTAL CELLS COUNTED 100 CELL DIFF
[2017-04-18 21:06] LABS: VERIFY COUNTS? YES
[2017-04-18 21:07] LABS: ANISOCYTOSIS 1+; TARGET CELLS 1+
[2017-04-18] MEDS ORDERED: PROMETHAZINE 25 MG/ML, 1ML ONE (21:09)
[2017-04-18] MEDS ORDERED: PROMETHAZINE 25 MG/ML, 1ML IM ONE (21:30)
[2017-04-18 22:06] LABS: BLOOD UREA NITROGEN < 1 mg/dL (7-18)
[2017-04-18 22:09] LABS: ASPARTATE AMINO TRANSFERASE 117 U/L (15-37)
[2017-04-18] MEDS ORDERED: POTASSIUM CHLORIDE 40 MEQ in SODIUM CHLORIDE 0.9% 500 ML IV ONE (22:30)
[2017-04-18] MEDS ORDERED: OMNIPAQUE 350 MG/ML, 100ML BOTTLE ONE (22:37)
[2017-04-18] MEDS ORDERED: HYDROmorphone 1 MG/ML, 1ML IVPush PRN (23:30)
[2017-04-18] MEDS ORDERED: LORazepam 2 MG/ML, 1ML IVPush STA (23:41)
[2017-04-18] MEDS ORDERED: LORazepam 2 MG/ML, 1ML ONE (23:48)
[2017-04-19] VITALS (7 sets, daily range): BP systolic 90–114; BP diastolic 57–73
[2017-04-19] MEDS ORDERED: CIPROFLOXACIN/PMX 400MG/200ML 100 ML IVPB ONE
[2017-04-19] MEDS ORDERED: METRONIDAZOLE PMX 500MG/100ML 100 ML IVPB ONE
[2017-04-19] MEDS ORDERED: CIPROFLOXACIN/PMX 400MG/200ML 0 ML ONE (00:03)
[2017-04-19] MEDS ORDERED: NS + 20MEQ KCL 1,000 ML IV SCH (00:14)
[2017-04-19] MEDS ORDERED: morphine SULFATE 10 MG/ML, 1ML IVPush PRN (00:30)
[2017-04-19] MEDS ORDERED: DOCUSATE 100 MG CAPSULE PO PRN (00:30)
[2017-04-19] MEDS ORDERED: POLYETHYLENE GLYCOL 17 GM PACKET PO PRN (00:30)
[2017-04-19] MEDS ORDERED: CEFTRIAXONE PMX 1GM/50ML 50 ML ONE (00:32)
[2017-04-19] MEDS: CEFTRIAXONE PMX 1GM/50ML 50 ML IV SCH (01:01)
[2017-04-19] MEDS ORDERED: PREN1COM3 PO (01:22)
[2017-04-19] MEDS: METRONIDAZOLE PMX 500MG/100ML 100 ML IV SCH ×3 (02:26→16:41)
[2017-04-19] MEDS ORDERED: MAGNESIUM SULFATE PMX 4GM/100M 100 ML IV ONE (07:30)
[2017-04-19] MEDS: SENNA/DOCUSATE TABLET PO SCH (07:52)
[2017-04-19] MEDS ORDERED: IBUPROFEN 200 MG TABLET ONE ×3 (07:53→20:37)
[2017-04-19] MEDS ORDERED: IBUPROFEN 600 MG TABLET ONE ×3 (07:53→20:37)
[2017-04-19 07:56] LABS: HEMATOCRIT 27.6 % (34.6-47.8); HEMOGLOBIN 8.9 g/dL (11.7-16.4); WHITE BLOOD COUNT 8.8 x10^3/uL (3.4-10)
[2017-04-19] MEDS: FAMOTIDINE 20 MG TABLET PO SCH ×2 (07:57→20:39)
[2017-04-19] MEDS: ONDANSETRON 2MG/ML, 2ML IVPush PRN (07:57)
[2017-04-19] MEDS: IBUPROFEN 800 MG TABLET PO PRN ×3 (07:58→20:39)
[2017-04-19 08:01] LABS: BLOOD UREA NITROGEN < 1 mg/dL (7-18)
[2017-04-19] MEDS ORDERED: SODIUM CHLORIDE 0.9% 1,000ML IVBOLUS ONE ×2 (08:30→17:00)
[2017-04-19] MEDS: morphine SULFATE 10 MG/ML, 1ML IVPush PRN (22:36)
[2017-04-20] MEDS: CEFTRIAXONE PMX 1GM/50ML 50 ML IV SCH (00:01)
[2017-04-20] MEDS: METRONIDAZOLE PMX 500MG/100ML 100 ML IV SCH ×3 (00:44→16:45)
[2017-04-20] MEDS: ONDANSETRON 2MG/ML, 2ML IVPush PRN (01:38)
[2017-04-20] MEDS ORDERED: IBUPROFEN 600 MG TABLET ONE ×4 (02:53→22:47)
[2017-04-20] MEDS ORDERED: IBUPROFEN 200 MG TABLET ONE ×4 (02:53→22:47)
[2017-04-20] MEDS: IBUPROFEN 800 MG TABLET PO PRN ×4 (02:54→22:48)
[2017-04-20 04:21] VITALS: BP 91/56
[2017-04-20 05:28] LABS: HEMATOCRIT 28.9 % (34.6-47.8); HEMOGLOBIN 9.4 g/dL (11.7-16.4); WHITE BLOOD COUNT 11.6 x10^3/uL (3.4-10)
[2017-04-20 05:37] LABS: BLOOD UREA NITROGEN 2 mg/dL (7-18)
[2017-04-20 05:46] LABS: DIFF TOTAL CELLS COUNTED 100 CELL DIFF
[2017-04-20 05:48] LABS: ANISOCYTOSIS 1+; VERIFY COUNTS? YES
[2017-04-20 05:49] LABS: POLYCHROMASIA 1+; TARGET CELLS 1+
[2017-04-20] MEDS ORDERED: SODIUM CHLORIDE 0.9% 1,000ML IVBOLUS ONE (07:00)
[2017-04-20] MEDS: FAMOTIDINE 20 MG TABLET PO SCH ×2 (07:41→21:31)
[2017-04-20] MEDS: SENNA/DOCUSATE TABLET PO SCH (07:41)
[2017-04-20] MEDS: morphine SULFATE 10 MG/ML, 1ML IVPush PRN ×2 (07:41→13:25)
[2017-04-20 07:53] VITALS: BP 96/62
[2017-04-20 13:49] VITALS: BP 103/71
[2017-04-20] MEDS ORDERED: LIDOCAINE 1%, 20ML ONE (15:17)
[2017-04-20 19:12] VITALS: BP 97/67
[2017-04-21] MEDS: CEFTRIAXONE PMX 1GM/50ML 50 ML IV SCH (00:26)
[2017-04-21 00:35] VITALS: BP 108/71
[2017-04-21] MEDS: METRONIDAZOLE PMX 500MG/100ML 100 ML IV SCH ×2 (01:14→11:46)
[2017-04-21 03:55] VITALS: BP 90/65
[2017-04-21] MEDS ORDERED: IBUPROFEN 600 MG TABLET ONE ×3 (05:30→21:20)
[2017-04-21] MEDS ORDERED: IBUPROFEN 200 MG TABLET ONE ×3 (05:30→21:20)
[2017-04-21] MEDS: IBUPROFEN 800 MG TABLET PO PRN ×3 (05:32→21:27)
[2017-04-21 06:00] LABS: HEMATOCRIT 26.7 % (34.6-47.8); HEMOGLOBIN 8.8 g/dL (11.7-16.4); WHITE BLOOD COUNT 9.3 x10^3/uL (3.4-10)
[2017-04-21 06:15] LABS: BLOOD UREA NITROGEN 2 mg/dL (7-18)
[2017-04-21 06:46] LABS: DIFF TOTAL CELLS COUNTED 100 CELL DIFF
[2017-04-21 07:00] VITALS: BP 92/58
[2017-04-21 07:00] LABS: ANISOCYTOSIS 1+; HYPOCHROMIA 1+; TARGET CELLS 1+; VERIFY COUNTS? YES
[2017-04-21] MEDS ORDERED: SODIUM CHLORIDE 0.9% 1,000ML IVBOLUS ONE (07:30)
[2017-04-21] MEDS ORDERED: MAGNESIUM SULFATE PMX 2GM/50ML 50 ML IV ONE (07:30)
[2017-04-21] MEDS ORDERED: POTASSIUM CHLORIDE 20 MEQ TAB.ER.PRT PO SCH (08:00)
[2017-04-21 08:59] VITALS: BP 100/67
[2017-04-21] MEDS: SENNA/DOCUSATE TABLET PO SCH (09:00)
[2017-04-21] MEDS: morphine SULFATE 10 MG/ML, 1ML IVPush PRN ×3 (09:10→15:21)
[2017-04-21] MEDS: FAMOTIDINE 20 MG TABLET PO SCH ×2 (11:43→21:27)
[2017-04-21 13:21] VITALS: BP 94/63
[2017-04-21] MEDS ORDERED: OMNIPAQUE 350 MG/ML, 100ML BOTTLE ONE (13:55)
[2017-04-21] MEDS: metroNIDAZOLE 500 MG TABLET PO SCH ×2 (17:51→21:27)
[2017-04-21] MEDS: POTASSIUM CHLORIDE 20 MEQ TAB.ER.PRT PO SCH (17:52)
[2017-04-21 19:33] VITALS: BP 113/80
[2017-04-21] MEDS: CEFDINIR 300 MG CAPSULE PO SCH (21:27)
[2017-04-22 01:44] VITALS: BP 111/77
[2017-04-22] MEDS: morphine SULFATE 10 MG/ML, 1ML IVPush PRN (05:14)
[2017-04-22] MEDS ORDERED: IBUPROFEN 600 MG TABLET ONE ×2 (05:49→11:22)
[2017-04-22] MEDS ORDERED: IBUPROFEN 200 MG TABLET ONE ×2 (05:49→11:22)
[2017-04-22 06:01] LABS: HEMATOCRIT 28.8 % (34.6-47.8); HEMOGLOBIN 9.4 g/dL (11.7-16.4); WHITE BLOOD COUNT 12.4 x10^3/uL (3.4-10)
[2017-04-22 06:16] LABS: BLOOD UREA NITROGEN 2 mg/dL (7-18)
[2017-04-22 06:47] VITALS: BP 109/74
[2017-04-22 06:59] LABS: DIFF TOTAL CELLS COUNTED 100 CELL DIFF
[2017-04-22 07:00] LABS: VERIFY COUNTS? YES
[2017-04-22 07:01] LABS: ANISOCYTOSIS 1+; POLYCHROMASIA 1+
[2017-04-22 07:02] LABS: TARGET CELLS 1+
[2017-04-22] MEDS ORDERED: POTASSIUM CHLORIDE 20 MEQ TAB.ER.PRT PO ONE (07:30)
[2017-04-22] MEDS ORDERED: FUROSEMIDE 20 MG/2 ML IV ONE (07:30)
[2017-04-22] MEDS: POTASSIUM CHLORIDE 20 MEQ TAB.ER.PRT PO SCH (08:00)
[2017-04-22] MEDS: SENNA/DOCUSATE TABLET PO SCH (09:00)
[2017-04-22] MEDS ORDERED: METR500T PO (09:14)
[2017-04-22] MEDS: FAMOTIDINE 20 MG TABLET PO SCH (10:24)
[2017-04-22] MEDS: CEFDINIR 300 MG CAPSULE PO SCH (10:24)
[2017-04-22] MEDS: metroNIDAZOLE 500 MG TABLET PO SCH (10:25)
[2017-04-22] MEDS: IBUPROFEN 800 MG TABLET PO PRN (11:24)
[2017-04-22 13:31] VITALS: BP 101/69
[2017-04-22 13:41] VITALS: BP 116/81
== END 2017-04-22 15:10 | disposition home or self-care (01) | DRG 871 ==
LOC: ED 23:57 → EDIP 04-19 00:14 → 4NOR 04-19 01:13 → DCLOUNGE 04-22 14:48
PROVIDERS: ADMIT Family Medicine; ATTEND Family Medicine
DX: A41.9 Sepsis, unspecified organism (principal); E43 Unspecified severe protein-calorie malnutrition; E87.2 Acidosis; R18.8 Other ascites; K70.9 Alcoholic liver disease, unspecified; E83.42 Hypomagnesemia; A09 Infectious gastroenteritis and colitis, unspecified; E86.0 Dehydration; E87.6 Hypokalemia; F10.129 Alcohol abuse with intoxication, unspecified; F12.90 Cannabis use, unspecified, uncomplicated; F17.200 Nicotine dependence, unspecified, uncomplicated; G89.29 Other chronic pain; Z53.8 Procedure and treatment not carried out for other reasons; Z88.6 Allergy status to analgesic agent
CPT/HCPCS: 36415; 49083; 71010; 71275; 74177; 80048; 80053; 81001; 82140; 83605; 83690; 83735; 84703; 85025; 85379; 85610; 85730; 87040; 87086; 87324; 93005; 96361; 96372; 96374; 96375; 96376; J0696; J1170; J2405; J2550; J3480; J3490; Q9967; J2060; J2270; J3475; J7030; J7040

== ENCOUNTER 2017-04-23 11:19 | Inpatient (IN) | payer MEDICAID ==
[~2017-04-23] VITALS: Ht 167.6 cm; Wt 69.8 kg
[~2017-04-23 11:19] MED LIST changes: +MIDAZOLAM 1 MG/ML, 5ML ONE; +PREN1COM3 PO; +PROPOFOL 10 MG/ML, 20ML ONE; +VECURONIUM 10 MG ONE
[2017-04-23] MEDS ORDERED: ONDANSETRON 2MG/ML, 2ML ONE (11:40)
[2017-04-23] MEDS ORDERED: MORPHINE SULFATE 4 MG/ML, 1ML ONE ×2 (11:40→12:21)
[2017-04-23] MEDS: MORPHINE SULFATE 4 MG/ML, 1ML IVPush PRN ×2 (11:43→12:23)
[2017-04-23] MEDS ORDERED: SODIUM CHLORIDE 0.9%, 500ML IVBOLUS ONE ×2 (12:00→13:00)
[2017-04-23] MEDS ORDERED: ONDANSETRON 2MG/ML, 2ML IVPush ONE (12:00)
[2017-04-23] MEDS ORDERED: SODIUM CHLORIDE FLUSH 10ML SYR IVF ONE (12:00)
[2017-04-23 12:25] LABS: HEMATOCRIT 30.3 % (34.6-47.8); HEMOGLOBIN 9.9 g/dL (11.7-16.4); WHITE BLOOD COUNT 15.8 x10^3/uL (3.4-10)
[2017-04-23] MEDS ORDERED: PIPERACILLIN/TAZO/PMX 3.375GM 50 ML IV ONE (12:30)
[2017-04-23 12:32] LABS: ASPARTATE AMINO TRANSFERASE 174 U/L (15-37); BLOOD UREA NITROGEN 3 mg/dL (7-18)
[2017-04-23] MEDS ORDERED: PIPERACILLIN/TAZO/PMX 3.375GM 50 ML ONE (12:49)
[2017-04-23 12:51] LABS: DIFF TOTAL CELLS COUNTED 100 CELL DIFF
[2017-04-23 12:52] LABS: ANISOCYTOSIS 1+; VERIFY COUNTS? YES
[2017-04-23] MEDS ORDERED: LIDOCAINE 1%, 20ML ONE (12:58)
[2017-04-23] MEDS ORDERED: VANCOMYCIN PER PHARMACY MC PRN ×2 (13:00→16:00)
[2017-04-23] MEDS ORDERED: VANCOMYCIN PMX 1GM/200ML 200 ML IV ONE (13:00)
[2017-04-23] MEDS ORDERED: SODIUM CHLORIDE 0.9% 1,000ML IVBOLUS ONE (13:00)
[2017-04-23] MEDS ORDERED: MORPHINE SULFATE 4 MG/ML, 1ML IVPush PRN (13:30)
[2017-04-23] MEDS ORDERED: PROMETHAZINE 25 MG/ML, 1ML IM PRN (14:00)
[2017-04-23] MEDS ORDERED: THIAMINE 200 MG in SODIUM CHLORIDE 0.9% 50 ML IV ONE (14:00)
[2017-04-23] MEDS ORDERED: ENOXAPARIN 40 MG/0.4 ML SQ SCH (15:00)
[2017-04-23] MEDS: SODIUM CHLORIDE 0.9% 1,000 ML IV SCH (15:32)
[2017-04-23] MEDS: morphine SULFATE 10 MG/ML, 1ML IVPush PRN ×2 (15:35→20:24)
[2017-04-23] MEDS ORDERED: PHARMACOKINETIC CONSULTATION MC ONE (16:00)
[2017-04-23] MEDS ORDERED: VANCOMYCIN PMX 1GM/200ML 200 ML IV SCH (16:00)
[2017-04-23] MEDS ORDERED: PHARMACOKINETIC MONITORING MC PRN (16:00)
[2017-04-23] MEDS: ONDANSETRON 2MG/ML, 2ML IVPush PRN ×2 (16:56→23:15)
[2017-04-23 17:56] VITALS: BP 96/58
[2017-04-23] MEDS: PIPERACILLIN/TAZO/PMX 3.375GM 50 ML IV SCH (21:16)
[2017-04-23 21:50] VITALS: BP 92/64
[2017-04-23] MEDS: OXYcodone IR 5MG TABLET PO PRN (23:15)
[2017-04-24 02:29] VITALS: BP 101/67
[2017-04-24] MEDS: PIPERACILLIN/TAZO/PMX 3.375GM 50 ML IV SCH ×4 (03:20→23:53)
[2017-04-24] MEDS: SODIUM CHLORIDE 0.9% 1,000 ML IV SCH ×4 (03:23→23:53)
[2017-04-24] MEDS: morphine SULFATE 10 MG/ML, 1ML IVPush PRN (05:02)
[2017-04-24 05:53] LABS: BLOOD UREA NITROGEN 4 mg/dL (7-18)
[2017-04-24 05:58] LABS: HEMATOCRIT 30.8 % (34.6-47.8); HEMOGLOBIN 10.1 g/dL (11.7-16.4); WHITE BLOOD COUNT 16.7 x10^3/uL (3.4-10)
[2017-04-24 06:06] LABS: ASPARTATE AMINO TRANSFERASE 155 U/L (15-37)
[2017-04-24 06:41] LABS: DIFF TOTAL CELLS COUNTED 100 CELL DIFF
[2017-04-24 06:42] LABS: VERIFY COUNTS? YES
[2017-04-24 06:43] LABS: ANISOCYTOSIS 1+; TARGET CELLS 1+
[2017-04-24] MEDS: ONDANSETRON 2MG/ML, 2ML IVPush PRN (06:43)
[2017-04-24] MEDS: OXYcodone IR 5MG TABLET PO PRN ×3 (06:43→22:51)
[2017-04-24 06:46] LABS: POLYCHROMASIA 1+
[2017-04-24 07:15] VITALS: BP 95/63
[2017-04-24] MEDS ORDERED: THIAMINE 100MG TABLET PO SCH (09:00)
[2017-04-24] MEDS ORDERED: MULTIVITAMIN 1 TABLET PO SCH (09:00)
[2017-04-24] MEDS ORDERED: FOLIC ACID 1 MG TABLET PO SCH (09:00)
[2017-04-24 12:44] VITALS: BP 105/73
[2017-04-24] MEDS: VANCOMYCIN PMX 1GM/200ML 200 ML IV SCH (13:15)
[2017-04-24 20:00] VITALS: BP 95/58
[2017-04-24] MEDS: ALBUMIN HUMAN 25% 100 ML IV SCH (20:44)
[2017-04-25] MEDS: VANCOMYCIN PMX 1GM/200ML 200 ML IV SCH (01:17)
[2017-04-25 04:30] VITALS: BP 101/69
[2017-04-25] MEDS: ALBUMIN HUMAN 25% 100 ML IV SCH ×3 (04:37→20:30)
[2017-04-25] MEDS ORDERED: NALOXONE 0.4 MG/ML, 1ML IVPush PRN (05:30)
[2017-04-25 05:36] LABS: DIFF TOTAL CELLS COUNTED 100 CELL DIFF; HEMATOCRIT 25.7 % (34.6-47.8); HEMOGLOBIN 8.2 g/dL (11.7-16.4); WHITE BLOOD COUNT 16.3 x10^3/uL (3.4-10)
[2017-04-25] MEDS ORDERED: HALOPERIDOL 5 MG/ML ONE (05:42)
[2017-04-25 05:55] LABS: ANISOCYTOSIS 1+; POLYCHROMASIA 1+; VERIFY COUNTS? YES
[2017-04-25 05:56] LABS: BLOOD UREA NITROGEN 4 mg/dL (7-18); SCHISTOCYTES 1+
[2017-04-25] MEDS: LORazepam 2 MG/ML, 1ML IVPush PRN ×4 (05:58→06:20)
[2017-04-25] MEDS ORDERED: HALOPERIDOL 5 MG/ML IM PRN (06:00)
[2017-04-25 06:01] LABS: ECHINOCYTES 1+
[2017-04-25 06:02] LABS: ASPARTATE AMINO TRANSFERASE 111 U/L (15-37)
[2017-04-25] MEDS ORDERED: LORazepam 2 MG/ML, 1ML IV PRN ×3 (06:30→16:00)
[2017-04-25] MEDS ORDERED: LORazepam 1MG TABLET PO PRN ×2 (06:30)
[2017-04-25] MEDS ORDERED: PROPOFOL 100 ML IV PRN ×2 (07:25→22:30)
[2017-04-25] MEDS ORDERED: PHARMACY MAY ADJ FOR RENAL FX MC SCH (07:30)
[2017-04-25] MEDS ORDERED: QUETIAPINE 25MG TABLET PO SCH (07:30)
[2017-04-25] MEDS ORDERED: LORazepam 2 MG/ML, 1ML IVPush PRN (07:30)
[2017-04-25] MEDS ORDERED: SODIUM CHLORIDE 0.9% 1,000ML IVBOLUS ONE ×2 (07:30→11:00)
[2017-04-25] MEDS ORDERED: SENNA/DOCUSATE TABLET NG PRN (07:30)
[2017-04-25] MEDS ORDERED: DIAZEPAM 5 MG/ML, 2ML IV SCH (07:30)
[2017-04-25] MEDS ORDERED: FAMOTIDINE 20 MG/2 ML IV SCH (07:30)
[2017-04-25] MEDS ORDERED: HEPARIN 5,000 UNITS/ML, 1ML SQ SCH (07:30)
[2017-04-25] MEDS ORDERED: SENNOSIDES 8.8 MG/5 ML ORAL SOL NG PRN (07:30)
[2017-04-25] MEDS ORDERED: LACTULOSE 20 GM/30 ML UDC NG PRN (07:30)
[2017-04-25] MEDS ORDERED: LIDOCAINE-MPF 1%, 2ML ENDO PRN (07:30)
[2017-04-25] MEDS ORDERED: FENTANYL PF 100 MCG/2ML IVPush PRN (07:30)
[2017-04-25] MEDS: ALBUTEROL/IPRATROPIUM 2.5MG/0.5MG, 3 ML INLINE SCH ×3 (07:30→14:02)
[2017-04-25] MEDS ORDERED: BISACODYL 10 MG SUPP PR PRN (07:30)
[2017-04-25] MEDS ORDERED: SODIUM BICARB 8.4%,50ML SYR. 100 MEQ in SODIUM CHLORIDE 0.45% 1,000 ML IV SCH (08:00)
[2017-04-25] MEDS ORDERED: VANCOMYCIN PER PHARMACY MC PRN (08:00)
[2017-04-25] MEDS ORDERED: VANCOMYCIN 1,300 MG in SODIUM CHLORIDE 0.9% 250 ML IV SCH (08:30)
[2017-04-25] MEDS ORDERED: PHARMACOKINETIC MONITORING MC PRN (08:30)
[2017-04-25 08:40] LABS: ABG COLLECTION SITE RIGHT BRACHIAL
[2017-04-25] MEDS ORDERED: SODIUM BICARBONATE 1 MEQ/ML, 50ML VIAL ONE (08:51)
[2017-04-25] MEDS ORDERED: PHYTONADIONE 10 MG/ML, 1ML SQ SCH (09:00)
[2017-04-25] MEDS: PIPERACILLIN/TAZO/PMX 3.375GM 50 ML IV SCH ×3 (09:13→22:35)
[2017-04-25] MEDS: NOREPINEPHRINE 4 MG in SODIUM CHLORIDE 0.9% 246 ML IV PRN ×2 (10:04→12:54)
[2017-04-25] MEDS ORDERED: VASOPRESSIN 100 UNIT in SODIUM CHLORIDE 0.9% 495 ML IV PRN ×2 (11:00→19:00)
[2017-04-25] MEDS ORDERED: DIAZEPAM 5 MG/ML, 10ML VIAL IV SCH (11:30)
[2017-04-25] MEDS ORDERED: NOREPINEPHRINE 1 MG/ML, 4ML ONE (12:49)
[2017-04-25] MEDS ORDERED: PHENYLEPHRINE 20 MG in SODIUM CHLORIDE 0.9% 248 ML IV PRN (13:00)
[2017-04-25] MEDS ORDERED: PHENYLEPHRINE 10 MG/ML ONE (13:09)
[2017-04-25 13:21] LABS: ABG COLLECTION SITE RIGHT RADIAL
[2017-04-25 13:22] LABS: COLLATERAL CIRCULATION TESTING NOT DOCUMENTED
[2017-04-25] MEDS ORDERED: NOREPINEPHRINE 8 MG in SODIUM CHLORIDE 0.9% 242 ML IV PRN (13:30)
[2017-04-25] MEDS ORDERED: VECURONIUM 50 MG in SODIUM CHLORIDE 0.9% 250 ML IV PRN (14:00)
[2017-04-25] MEDS ORDERED: FENTANYL PF 2,500 MCG in SODIUM CHLORIDE 0.9% 200 ML IV PRN ×2 (14:00→22:30)
[2017-04-25] MEDS ORDERED: FLUMAZENIL 0.1 MG/1 ML, 5ML ONE (14:59)
[2017-04-25] MEDS ORDERED: morphine SULFATE 10 MG/ML, 1ML IV PRN (16:00)
[2017-04-25] MEDS ORDERED: morphine SULFATE 10 MG/ML, 1ML IV ONE (16:00)
[2017-04-25] MEDS ORDERED: ATROPINE OPHTH SOLN 1%, 2ML PO PRN (16:00)
[2017-04-25] MEDS ORDERED: LORazepam 2 MG/ML, 1ML IV ONE (16:00)
[2017-04-25 19:00] LABS: HEMATOCRIT 24.6 % (34.6-47.8); HEMOGLOBIN 7.9 g/dL (11.7-16.4)
[2017-04-25] MEDS ORDERED: PHENYLEPHRINE 40 MG in SODIUM CHLORIDE 0.9% 246 ML IV PRN (19:00)
[2017-04-25] MEDS ORDERED: NOREPINEPHRINE 4 MG in SODIUM CHLORIDE 0.9% 246 ML IV PRN (19:00)
[2017-04-25] MEDS: ALBUTEROL/IPRATROPIUM 2.5MG/0.5MG, 3 ML NPPB SCH (21:30)
[2017-04-25] MEDS: SODIUM BICARB 8.4%,50ML SYR. 100 MEQ in SODIUM CHLORIDE 0.45% 1,000 ML IV SCH (22:39)
[2017-04-26] MEDS ORDERED: VANCOMYCIN 1,300 MG in SODIUM CHLORIDE 0.9% 250 ML IV SCH (01:00)
[2017-04-26] MEDS: ALBUTEROL/IPRATROPIUM 2.5MG/0.5MG, 3 ML NPPB SCH ×5 (01:30→14:59)
[2017-04-26] MEDS: PHENYLEPHRINE 80 MG in SODIUM CHLORIDE 0.9% 242 ML IV PRN ×2 (01:44→08:23)
[2017-04-26] MEDS: PIPERACILLIN/TAZO/PMX 3.375GM 50 ML IV SCH ×3 (01:45→12:22)
[2017-04-26] MEDS: ALBUMIN HUMAN 25% 100 ML IV SCH ×2 (02:35→11:02)
[2017-04-26] MEDS: NOREPINEPHRINE 8 MG in SODIUM CHLORIDE 0.9% 242 ML IV PRN ×2 (02:36→14:08)
[2017-04-26] MEDS: SODIUM BICARB 8.4%,50ML SYR. 100 MEQ in SODIUM CHLORIDE 0.45% 1,000 ML IV SCH (02:37)
[2017-04-26] MEDS ORDERED: SODIUM CHLORIDE FLUSH 10ML SYR IVF ONE (03:39)
[2017-04-26] MEDS: SODIUM CHLORIDE 0.9% 1,000 ML IV SCH ×2 (04:44→12:21)
[2017-04-26 05:11] LABS: WHITE BLOOD COUNT 15.6 x10^3/uL (3.4-10)
[2017-04-26 05:13] LABS: HEMATOCRIT 21.4 % (34.6-47.8); HEMOGLOBIN 6.9 g/dL (11.7-16.4)
[2017-04-26 05:20] VITALS: BP 31/14
[2017-04-26 05:41] LABS: DIFF TOTAL CELLS COUNTED 100 CELL DIFF
[2017-04-26 05:44] LABS: ANISOCYTOSIS 1+; HYPOCHROMIA 1+; VERIFY COUNTS? YES
[2017-04-26 05:45] LABS: POLYCHROMASIA 1+
[2017-04-26 05:46] LABS: ECHINOCYTES 1+
[2017-04-26 05:48] LABS: SCHISTOCYTES 1+
[2017-04-26 07:32] LABS: ABG COLLECTION SITE RIGHT RADIAL; COLLATERAL CIRCULATION TESTING NORMAL
[2017-04-26 08:29] LABS: ASPARTATE AMINO TRANSFERASE 352 U/L (15-37); BLOOD UREA NITROGEN 5 mg/dL (7-18)
[2017-04-26] MEDS ORDERED: DEXTROSE 50%, 50ML VIAL ONE ×2 (08:42→13:57)
[2017-04-26] MEDS ORDERED: DEXTROSE 50%, 50ML SYRINGE IVPush ONE (09:00)
[2017-04-26] MEDS ORDERED: SODIUM BICARB 8.4%,50ML SYR. 150 MEQ in DEXTROSE 5% 1,000 ML IV SCH (09:00)
[2017-04-26] MEDS ORDERED: PICC FLUSH PROTOCOL XX SCH (09:00)
[2017-04-26] MEDS ORDERED: SODIUM CHLORIDE FLUSH 10ML SYR IVF SCH (09:00)
[2017-04-26] MEDS ORDERED: PANTOPRAZOLE 80 MG in SODIUM CHLORIDE 0.9% 100 ML IV SCH (11:30)
[2017-04-26] MEDS ORDERED: PANTOPRAZOLE 80 MG in SODIUM CHLORIDE 0.9% 50 ML IV ONE (11:30)
[2017-04-26] MEDS ORDERED: DEXTROSE 50%, 50ML SYRINGE IVPush PRN (14:30)
[2017-04-26] MEDS ORDERED: ATROPINE OPHTH SOLN 1%, 2ML PO PRN (16:00)
[2017-04-26] MEDS ORDERED: LORazepam 2 MG/ML, 1ML IV ONE (16:00)
[2017-04-26] MEDS ORDERED: LORazepam 2 MG/ML, 1ML IV PRN (16:00)
[2017-04-26] MEDS ORDERED: morphine SULFATE 10 MG/ML, 1ML IV ONE (16:00)
[2017-04-26] MEDS ORDERED: morphine SULFATE 10 MG/ML, 1ML IV PRN (16:00)
== END 2017-04-26 16:45 | disposition expired | DRG 871 ==
LOC: ED 11:33 → EDIP 12:55 → 4NOR 14:08 → 4EST 19:52 → CCU 04-25 05:29
PROVIDERS: ADMIT Family Medicine; ATTEND Internal Medicine
PROC: 02HV33Z Insertion of Infusion Device into Superior Vena Cava, Percutaneous Approach (ICD-10-PCS; principal; 2017-04-25)
PROC: 5A1935Z Respiratory Ventilation, Less than 24 Consecutive Hours (ICD-10-PCS; 2017-04-25)
PROC: 0BH17EZ Insertion of Endotracheal Airway into Trachea, Via Natural or Artificial Opening (ICD-10-PCS; 2017-04-25)
PROC: 0T9B70Z Drainage of Bladder with Drainage Device, Via Natural or Artificial Opening (ICD-10-PCS; 2017-04-25)
DX: A41.9 Sepsis, unspecified organism (principal); E43 Unspecified severe protein-calorie malnutrition; J96.00 Acute respiratory failure, unspecified whether with hypoxia or hypercapnia; J69.0 Pneumonitis due to inhalation of food and vomit; R65.21 Severe sepsis with septic shock; G93.41 Metabolic encephalopathy; D68.9 Coagulation defect, unspecified; N17.9 Acute kidney failure, unspecified; N39.0 Urinary tract infection, site not specified; K70.11 Alcoholic hepatitis with ascites; D64.9 Anemia, unspecified; B95.2 Enterococcus as the cause of diseases classified elsewhere; Z68.24 Body mass index [BMI] 24.0-24.9, adult; E53.8 Deficiency of other specified B group vitamins; E55.9 Vitamin D deficiency, unspecified; F10.20 Alcohol dependence, uncomplicated; G89.29 Other chronic pain; K70.31 Alcoholic cirrhosis of liver with ascites; Z66 Do not resuscitate; M79.89 Other specified soft tissue disorders; Z90.49 Acquired absence of other specified parts of digestive tract; Z91.14 Patient's other noncompliance with medication regimen
CPT/HCPCS: 36415; 36569; 36600; 49083; 71010; 71250; 74176; 76937; 77001; 80053; 80202; 80307; 81001; 82140; 82330; 82533; 82803; 82805; 82962; 83605; 83690; 83735; 83880; 84100; 84145; 84478; 84703; 85014; 85018; 85025; 85610; 85730; 87040; 87070; 87081; 87086; 87106; 87205; 93005; 93970; 94002; 94003; 94640; 94667; 96361; 96365; 96375; J1650; J2250; J2405; J2543; J2550; J2704; J3370; J3490; J7070; J7620; P9047; C1751; C9113; G0479; J1630; J2060; J2270; J2370; J7030; J7040; J7050; S0028